=== PATIENT | male | born 1960 | race Caucasian/White ===

== ENCOUNTER 2016-09-14 15:23 | Emergency (ER) | payer OTHER ==
[~2016-09-14] VITALS: Ht 185.4 cm; Wt 113.4 kg
[~2016-09-14 15:23] MED LIST: ADULT LOW DOSE81 MG PO; ASPIRIN325 PO; ATIVAN1 MG PO; CARVEDILOL12.5 MG PO; CEFTIN 250 MG250 MG PO; CLARITIN10 MG PO; COMBIVENT INH; COREG PO; FLEXERIL PO; FLONASE 0.05%50 MCG NS; IBUPROFEN 600600 M1 PO; IMDUR 30 MG TAB30 M1 PO; LISINOPRIL10 MG PO; MUCINEX TA600 MG/TA2 PO; NORCO 5-325 TA1 EACH PO; PERCOCET 5-3251 EACH PO; PREDNISONE 20 M20 MG PO; PREDNISONE 5 MG5 M1 PO; PRILOSEC40 MG PO; TYLENOL325 MG PO; ULTRAM 50MG TAB50 MG PO; VENTOLIN HFA 1818 GM INH; VYTORIN 10-401 EACH PO; VYTORIN PO; ZESTRIL10 MG PO
[2016-09-14] MEDS ORDERED: FLEXERIL PO (15:45)
[2016-09-14] MEDS ORDERED: MEDROLDOSEPACK PO (15:45)
[2016-09-14] MEDS ORDERED: MOBIC15 MG PO (15:45)
[2016-09-22] MEDS ORDERED: ULTRAM 50MG TAB50 MG PO (15:56)
== END 2016-09-14 16:22 | disposition home or self-care (01) ==
LOC: ER 15:23
DX: S39.012A Strain of muscle, fascia and tendon of lower back, initial encounter (principal); K21.9 Gastro-esophageal reflux disease without esophagitis; I10 Essential (primary) hypertension; I48.91 Unspecified atrial fibrillation; F17.210 Nicotine dependence, cigarettes, uncomplicated; X50.0XXA Overexertion from strenuous movement or load, initial encounter; Y93.89 Activity, other specified; Y92.098 Other place in other non-institutional residence as the place of occurrence of the external cause; Y99.8 Other external cause status

== ENCOUNTER 2017-04-03 06:23 | Emergency (ER) | payer OTHER ==
[~2017-04-03] VITALS: Ht 185.4 cm; Wt 108.9 kg
[~2017-04-03 06:23] MED LIST changes: +MEDROLDOSEPACK PO; +MOBIC15 MG PO
[2017-04-03] MEDS ORDERED: BUTALB-APAP-CA1 EACH PO (06:46)
== END 2017-04-03 06:47 | disposition home or self-care (01) ==
LOC: ER 06:23
DX: R51 Headache (principal); K21.9 Gastro-esophageal reflux disease without esophagitis; I10 Essential (primary) hypertension; I25.10 Atherosclerotic heart disease of native coronary artery without angina pectoris; I25.2 Old myocardial infarction; F17.210 Nicotine dependence, cigarettes, uncomplicated; Z95.5 Presence of coronary angioplasty implant and graft

== ENCOUNTER 2017-10-10 13:23 | Emergency (ER) | payer OTHER ==
[~2017-10-10] VITALS: Ht 185.4 cm; Wt 104.3 kg
[~2017-10-10 13:23] MED LIST changes: +BUTALB-APAP-CA1 EACH PO; +CYMBALTA30 MG PO; +EXCEDRIN CAPLE1 EACH PO
[2017-10-10 13:31] VITALS: BP 141/93
[2017-10-10] MEDS ORDERED: TRAMADOL 50 MG50 MG PO ×2 (13:47)
[2017-10-11] MEDS ORDERED: TRAMADOL 50 MG50 MG PO ×2 (09:51)
[2017-10-11] MEDS ORDERED: LIPITOR10 MG PO ×2 (09:51)
== END 2017-10-10 14:00 | disposition home or self-care (01) ==
LOC: ER 13:23
DX: G89.29 Other chronic pain (principal); M54.5 Low back pain; Z87.891 Personal history of nicotine dependence; K21.9 Gastro-esophageal reflux disease without esophagitis; I10 Essential (primary) hypertension; I25.10 Atherosclerotic heart disease of native coronary artery without angina pectoris; I21.9 Acute myocardial infarction, unspecified

== ENCOUNTER 2017-10-11 09:00 | Inpatient (IN) | payer OTHER ==
[~2017-10-11] VITALS: Ht 185.4 cm; Wt 107.2 kg
--- NOTE | ~2017-10-11 | EKG ---
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 : 1960 Requested By: Pipe Maria Order Number: [id number] MD: Scooter Smith Measurements Intervals [place] Rate: 75 P: 38 RI: 155 QRS: -12 QRSD: 100 T: 22 QT: 361 QTc: 404 Interpretive Statements Sinus rhythm Left ventricular hypertrophy Inferoposterior infarct, old Compared to ECG 06/02/2017 16:30:57 No significant change was found Electronically Signed On 10-11-2017 17:31:01 ART OBJECTS REPAIRER by Scooter Smith [email or web address] <ELECTRONICALLY SIGNED> By: Scooter Smith MD, [facility] 10/11/17 1731 1008 1008 Scooter Smith MD, [facility] /EPI
--- NOTE | ~2017-10-11 | 2DMMODE ---
[facility] [address] [place] [address] 2 D/M-MODE ECHOCARDIOGRAM Name: SHAYE LICEA Room #: 422-P ADM IN M.R.#: [id number] Admission: 10/11/17 Attend Phys: Meena Hernandez Discharge: Date of : 58 Date of Service: 10/11/17 1541 Report #: [id number] THIS REPORT FOR: //name// APPROVED REPORT Study performed: 10/11/2017 14:55:51 EXAM: Comprehensive 2D, Doppler, and color-flow Echocardiogram Patient Location: Echo lab Room #: [facility] Status: routine BSA: 2.33 HR: 80 bpm BP: 130/87 mmHg Rhythm: NSR Other Information Study Quality: Fair Technically limited study due to body habitus. Echo Enhancing Agent Indication: Rule out shunt/Endocardial border delineation Agent(s) / Amount(s) Used: Agitated Saline 6 cc Optison 5 cc 2D Dimensions RVDd: 37.59 mm LVEF(%): 36.53 (>50%) IVSd: 11.70 (7-11mm) LVOT Diam: 22.77 (18-24mm) LVDd: 52.71 mm PWd: 10.92 (7-11mm) Ascending Ao: 33.82 (22-36mm) LVDs: 43.38 (25-40mm) Aortic Root: 39.18 mm Meyers's LVEF: 36.53 % Volumes Left Atrial Volume (Systole) Single Plane 4CH: 39.13 mL Single Plane 2CH: 31.12 mL LA ESV Index: 16.00 mL/m2 Aortic Valve AoV Peak Jonathan.: 1.42 m/s AO Peak Gr.: 8.12 mmHg LVOT Max P.18 mmHg LVOT Max V: 1.14 m/s ROBERT Vmax: 3.25 cm2 [facility] [place] [address] 2 D/M-MODE ECHOCARDIOGRAM Name: SHAYE LICEA Room #: 422-P [facility] IN ..#: [id number] Admission: 10/11/17 Attend Phys: Meena Hernandez Discharge: Date of : 58 Date of Service: 10/11/17 1541 Report #: [id number] Mitral Valve E/A Ratio: 0.8 MV Decel. Time: 300.89 ms MV E Max Jonathan.: 0.59 m/s MV A Jonathan.: 0.78 m/s MV PHT: 87.26 ms IVRT: 89.97 ms Pulmonary Valve PV Peak Jonathan.: 1.03 m/s PV Peak Gr.: 4.27 mmHg Pulmonary Vein P Vein S: 0.63 m/s P Vein D: 0.46 m/s P Vein S/D Ratio: 1.37 Tricuspid Valve RAP Estimate: 5.00 mmHg Left Ventricle The left ventricle is normal size. There is normal left ventricular wall thickness. Left ventricular systolic function is low normal. LVEF is 50%. Mild diastolic dysfunction is present (impaired relaxation pattern). Right Ventricle The right ventricle is normal size. The right ventricular systolic function is normal. Atria The left atrium size is normal. No shunting by contrast bubble injection. The right atrium size is normal. Aortic Valve Aortic valve is mildly calcified. The prosthetic aortic valve is not well visualized. Bioprosthetic aortic valve is present. No aortic regurgitation is present. There is no aortic valvular stenosis. Mitral Valve The mitral valve is normal in structure. Mitral regurgitation jet is eccentrically directed. Difficult to assess. Appears to be moderate in severity. Tricuspid Valve The tricuspid valve is normal in structure. There is no tricuspid [address] [address] 2 D/M-MODE ECHOCARDIOGRAM Name: SHAYE LICEA Room #: 422-P [facility] IN ..#: [id number] Admission: 10/11/17 Attend Phys: Meena Hernandez Discharge: Date of : 58 Date of Service: 10/11/17 1541 Report #: [id number] valve regurgitation noted. Unable to assess PA pressure. Pulmonic Valve Pulmonic valve is not well visualized. Great Vessels Aortic root is mildly dilated. IVC is normal in size and collapses >50% with inspiration. Pericardium There is no pericardial effusion. <Conclusion> The left ventricle is normal size. LVEF is 50%. The left atrium size is normal. The right atrium size is normal. Aortic valve is mildly calcified. The mitral valve is normal in structure. Mitral regurgitation jet is eccentrically directed. Difficult to assess. Appears to be moderate in severity. The tricuspid valve is normal in structure. There is no tricuspid valve regurgitation noted. Unable to assess PA pressure. Aortic root is mildly dilated. There is no pericardial effusion. No shunting by contrast bubble injection. <ELECTRONICALLY SIGNED> By: Hung Chowdhury MD 10/11/17 1541 1541 154 Hung Chowdhury MD /INF
--- NOTE | ~2017-10-11 | D ---
[facility] [place] [address] [address] [place] [address] DISCHARGE SUMMARY Name: SHAYE LICEA Room #: 422[facility]P [facility] IN M.R.#: [id number] Admission: 10/11/17 Attend Phys: Meena Hernandez MD Discharge: 10/12/17 Date of : 58 Report #: [id number] THIS REPORT FOR: //name// CC: Bebeto Hernandez DATE OF SERVICE: 10/12/2017 HISTORY OF PRESENT ILLNESS: The patient is a 56-year-old man who came to the hospital with left upper extremity weakness. Please refer to admission H and P for details. In brief, the patient was hospitalized at the outside hospital a couple of months ago for the similar symptoms. HOSPITALIZATION COURSE: The patient was hospitalized with suspected CVA/TIA. MRI and MRA of the brain was obtained. Studies were unremarkable. The patient has no stroke. He has moderate stenosis of the right carotid artery. Neurologist was consulted. Per neurologist's evaluation, symptoms are not suggestive of the stroke. Rather, the patient may have a cervical radiculopathy. T-spine MRI was obtained, that is unremarkable. C-spine MRI is ordered, result of which is pending at this time. Outpatient EMG, and physical therapy is recommended. The patient's overall hospital stay was uneventful. His condition is acceptable for him to go home, and follow up as an outpatient. DISCHARGE DIAGNOSES: 1. Right upper extremity and lower extremity weakness, stroke and transient ischemic attack unlikely, as detailed above. Outpatient evaluation, to determine etiology. Possible EMG and physical therapy. 2. Coronary artery disease. No chest pain, and no evidence of acute coronary syndrome during this hospital stay. Cardiac echo showed left ventricular ejection fraction of 50%. Negative bubble study. SECONDARY DIAGNOSES: Include hypertension, gastroesophageal reflux disease, chronic back pain, and reported history of chronic obstructive pulmonary disease by the patient's chart, but the patient denies. DISCHARGE MEDICATIONS: Please refer to medication reconciliation list in EMR. DISPOSITION: The patient will be discharged home later today once C-spine MRI is completed. FOLLOWUP PLAN: [facility] [address] [place] [address] DISCHARGE SUMMARY Name: LICEASHAYE Room #: 422-P [facility] IN M.R.#: [id number] Admission: 10/11/17 Attend Phys: Meena Hernandez MD Discharge: 10/12/17 Date of : 58 Report #: [id number] 1. Follow up with the neurologist as advised. 2. Follow up with the sausage mixer and primary care physician as planned. <ELECTRONICALLY SIGNED> By: Meena Hernandez MD 10/14/17 1604 1319 1352 Meena Hernandez MD /nt
--- NOTE | ~2017-10-11 | H ---
[facility] [address] HISTORY AND PHYSICAL Name: SHAYE LICEA Room #: 422-P ADM IN M.R.#: [id number] Admission: 10/11/17 Attend Phys: Meena Hernandez MD Discharge: Date of : 58 Report #: [id number] THIS REPORT FOR: //name// CC: Bebeto Hernandez DATE OF SERVICE: 10/11/2017 CHIEF COMPLAINT: Left upper extremity weakness. HISTORY OF PRESENT ILLNESS: The patient is a 56-year-old man who was hospitalized at [facility] in July 2017, for left-sided TIA. The patient denies history of strokes. He was doing well, until this morning, when he woke up with left-sided weakness. The patient reports numbness and weakness in left upper extremity, followed by tremors. Then, he also noticed left leg weakness. Symptoms are slightly better, but the patient still remains symptomatic. In the emergency room, CT scan of the brain showed no evidence of stroke. MRI was also negative for the stroke. On MRA, the patient has moderate right carotid stenosis. PAST MEDICAL HISTORY: 1. Coronary artery disease, status post stent placements. 2. Hypertension. 3. GERD. 4. Chronic back pain. 5. Reported history of COPD, but the patient denies, and he is not on any treatment. CURRENT MEDICATIONS: The patient is on Lipitor, Coreg, Cymbalta for pain, lisinopril, omeprazole, and tramadol. FAMILY HISTORY: Reviewed and not pertinent to the patient's current condition. SOCIAL HISTORY: The patient quit smoking cigarettes about a year and a half ago. He does not drink alcohol. REVIEW OF SYSTEMS: As above in HPI section, all others negative. PHYSICAL EXAMINATION: GENERAL: The patient is a middle-aged man who is in no apparent distress. He is alert and oriented x3. VITAL SIGNS: His blood pressure is 130/87, heart rate is 70, respiration is 16, and temperature is 98.7. HEENT: Pupils are equal. Eye movements are normal. Sclerae are anicteric. [facility] [address] [place] [address] HISTORY AND PHYSICAL Name: SHAYE LICEA Room #: 422-P [facility] IN M.R.#: [id number] Admission: 10/11/17 Attend Phys: Meena Hernandez MD Discharge: Date of : 58 Report #: [id number] NECK: Supple. The patient has no JVD. He has no carotid bruits. RESPIRATORY: Respiratory sounds are diminished. Lungs are clear to auscultation bilaterally. Chest moves symmetrically with breathing. CARDIOVASCULAR: The patient has regular rhythm and rate. He has no murmurs, gallops, or rubs. GASTROINTESTINAL: Abdomen is soft, nondistended and nontender. Bowel sounds are present. Hepatomegaly or splenomegaly is not palpated. MUSCULOSKELETAL: The patient has no edema, cyanosis, or clubbing. Range of motion is normal. Joint deformities are not appreciated. NEUROLOGIC: The patient is alert and oriented x3. Muscle strength on the left side is slightly weak. The patient has left upper extremity tremor. LABS: Basic metabolic profile is essentially normal except with slightly low potassium at 3.2. Liver function tests are normal. Troponin is undetectable. CBC shows mild anemia with hemoglobin of 13.4, and hematocrit of 39.1. ASSESSMENT AND PLAN: 1. Left-sided weakness as detailed above. MRI of the brain is negative for stroke. MRA shows moderate right carotid stenosis. The patient is started on aspirin. Neurologist is consulted. Input is very much appreciated. Check fasting lipid profile, obtain carotid echo, and request PT evaluation. 2. Hypokalemia, mild. Replace and recheck. 3. Hypertension. Hold lisinopril and Coreg for permissive hypertension. 4. Dyslipidemia. The patient is on Lipitor. Adjust dose as necessary based on fasting lipid profile. 5. Deep venous thrombosis prophylaxis. Use subQ Lovenox. <ELECTRONICALLY SIGNED> By: Meena Hernandez MD 10/11/17 1906 1429 1552 Meena Hernandez MD /nt
--- NOTE | ~2017-10-11 | HC ---
[facility] [place] [address] [address] [place] [address] CONSULTATION Name: SHAYE LICEA Room #: 422-P [facility] IN M.R.#: [id number] Admission: 10/11/17 Attend Phys: Meena Hernandez MD Discharge: 10/12/17 Date of : 58 Report #: [id number] THIS REPORT FOR: //name// CC: Bebeto Hernandez DATE OF SERVICE: 10/11/2017 HISTORY OF PRESENT ILLNESS: This is a 56-year-old male patient who was evaluated by me for an episode of numbness on the left side. It involves left upper extremity and to some extent, it involved the left lower extremity. It does not involve the face. It is of moderate severely. He does not have any symptom to suggest that he has any weakness there. He was admitted with similar symptoms at [facility] and they found some old stroke, but did not find any new stroke. REVIEW OF SYSTEMS: Indicate that he had some lumbar spine problem. He also has some cervical spine problem. He had epidurals. He had MRI of the lumbar spine as well as cervical spine about 1 year ago. He denies any stress or anxiety. He indicates that he does not take any medication for anxiety. He does have a history of coronary artery disease. Record indicates that he may have history of GERD, hypertension, COPD. He indicates that he takes Cymbalta, but he takes it for pain. He also takes tramadol for the pain. He is not having any active eye symptom. He does not have any new ENT symptoms, chest pain, respiratory difficulty, GI, , musculoskeletal, constitutional, dermatological, hematological, psychiatric, throat or allergic symptom associated with present symptomatology. PAST MEDICAL HISTORY: Positive for coronary artery problem. FAMILY HISTORY: Negative for any early age stroke. SOCIAL HISTORY: Used to smoke, but does not smoke. He does not drink alcohol on a regular basis. PHYSICAL EXAMINATION: NEUROLOGIC: Indicates that the patient is alert, responsive. His speech, concentration, fund of knowledge and memory is at his baseline. Cranial nerve examination 2-12 is unremarkable. He does look weak in the left upper extremity, but I do not know what his baseline is. His position sense is intact. His reflexes are symmetrical. His tone is symmetrical. He has no papilledema. There is no cerebellar sign. There is no meningeal sign. There is no thyroid mass. GENERAL: He is a reasonably well-developed individual who does not have any dysmorphic features of eyes, ears and face. His hearing and vision is adequate. EXTREMITIES: His pulses are palpable. He has no edema, cyanosis or jaundice. [address] [address] CONSULTATION Name: SHAYE LICEA Room #: 422-P [facility] IN M.R.#: [id number] Admission: 10/11/17 Attend Phys: Meena Hernandez MD Discharge: 10/12/17 Date of : 58 Report #: [id number] CARDIAC: Showed unremarkable heart sound and there is no murmur or any atrial fibrillation. RESPIRATORY: No respiratory difficulty or rhonchi was noticed. VITAL SIGNS: Blood pressure is 143/86, respirations 19, pulse is 92, temperature is 98.1. LABORATORY DATA: His white count is normal. His potassium is trace low at 3.2. He did have an MRI of the brain and MRA of the head and neck and CT scan. They were reviewed and they were basically unremarkable. IMPRESSION: There is no etiology, which has been demonstrated, which can explain the patient's symptoms. There is nothing on MRI to make it a case for a stroke or transient ischemic attack. Cervical spine is a possibility, but he has been evaluated in the past. He has not had a thoracic spine evaluation and we might do that. He indicated a Cardiology evaluation was recommended when he was in [place] and you might consider that. RECOMMENDATION: No clear etiology to explain the patient's symptoms are there. He does need an EMG, but that has to be done as an outpatient because we do not have any machine for EMG here. I will go ahead and do a thoracic spine MRI to complete the workup. We will go ahead and ask PT, OT to evaluate him. That consultation has already there. I will do some more blood workup, which I ordered in this patient. As mentioned above, they are recommended Cardiology evaluation with Dr. Anderson and you might consider him to see him, but this patient's symptoms are not typical for any etiology which I can say neurologically. Thank you very much for this referral and if you have any questions, please feel free to contact me. <ELECTRONICALLY SIGNED> By: Ti Rowell MD 10/14/17 1145 1642 0140 Ti Rowell MD /nt
[~2017-10-11 09:00] MED LIST changes: +TRAMADOL 50 MG50 MG PO
[2017-10-11 09:01] VITALS: BP 134/94
[2017-10-11 09:34] LABS: HEMATOCRIT 39.1 % (42.0-52.0); HEMOGLOBIN 13.4 gm/dL (14.0-18.0); MCH 32.4 pg (26.0-34.0); MCHC 34.2 g/dL (28.0-37.0); MCV 94.9 fL (80.0-100.0); PLATELET COUNT 213 thou/uL (150-400); RBC 4.12 mil/uL (4.50-6.00); RDW 14.5 % (10.5-14.5); WBC 5.1 thou/uL (4.0-11.0)
[2017-10-11 09:43] LABS: ANION GAP 8 mmol/L (7-16); BUN 22 mg/dL (7-18); CALCIUM 8.6 mg/dL (8.5-10.1); CHLORIDE 108 mmol/L (98-107); CO2 28 mmol/L (21-32); CREATININE 1.2 mg/dL (0.7-1.3); GLUCOSE 107 mg/dL (74-106); POTASSIUM 3.2 mmol/L (3.5-5.1); SODIUM 144 mmol/L (136-145)
[2017-10-11 09:47] LABS: PROTIME 10.1 Seconds (9.3-11.4)
[2017-10-11 09:50] LABS: ALBUMIN 3.3 g/dL (3.4-5.0); SGOT 17 U/L (15-37); SGPT 41 U/L (30-65); TOTAL BILIRUBIN 0.2 mg/dL (<0.1-1.0); TOTAL PROTEIN 6.8 g/dL (6.4-8.2); TROPONIN-I < 0.04 ng/mL (<0.06)
[2017-10-11] MEDS ORDERED: LIPITOR10 MG PO ×2 (09:51)
[2017-10-11] MEDS ORDERED: TRAMADOL 50 MG50 MG PO ×2 (09:51)
[2017-10-11 09:57] LABS: ABSOLUTE NEUTROPHILS 3.2 thou/uL (1.4-8.2)
[2017-10-11 12:45] VITALS: BP 132/87
[2017-10-11 12:50] VITALS: BP 130/87
[2017-10-11 15:10] LABS: CHOLESTEROL 156 mg/dL (<200); HDL CHOLESTEROL 30 mg/dL (>40); LDL CHOLESTEROL 89 mg/dL (<100); SERUM ASSESSMENT Clear; TC:HDL 5.2 Ratio (Not establshd); TRIGLYCERIDE 189 mg/dL (<150); VLDL 38 mg/dL (<40)
[2017-10-11 15:44] VITALS: BP 143/86
[2017-10-11 19:40] VITALS: BP 139/84
[2017-10-12 04:00] VITALS: BP 151/94
[2017-10-12 05:41] LABS: CALCIUM 8.6 mg/dL (8.5-10.1); CREATININE 0.9 mg/dL (0.7-1.3); POTASSIUM 3.8 mmol/L (3.5-5.1)
[2017-10-12 06:00] LABS: URINE BILIRUBIN NEGATIVE (Negative); URINE BLOOD NEGATIVE (Negative); URINE CLARITY CLEAR; URINE COLOR YELLOW; URINE GLUCOSE-RANDOM* NEGATIVE (Negative); URINE KETONES NEGATIVE (Negative); URINE LEUKOCYTES NEGATIVE (Negative); URINE NITRITE NEGATIVE (Negative); URINE PROTEIN (DIPSTICK) NEGATIVE (Negative); URINE SPECIFIC GRAVITY 1.025 (1.005-1.035); URINE UROBILINOGEN 0.2 E.U./dl (0.2-1.0)
[2017-10-12 06:09] LABS: AMP/METHAMP Negative (Negative); BARBITURATES Negative (Negative); BENZODIAZEPINES Negative (Negative); COCAINE Negative (Negative); METHADONE Negative (Negative); OPIATES POSITIVE (Negative); PCP Negative (Negative)
[2017-10-12 07:54] VITALS: BP 134/98
[2017-10-12 15:42] VITALS: BP 155/96
[2017-10-12] MEDS ORDERED: HYDROCODONE-AP1 EAC6 PO ×2 (15:49)
== END 2017-10-12 16:34 | disposition home or self-care (01) | DRG 948 ==
LOC: ER 09:00 → 4E 09:58 → EROBS 09:58 → 4E 13:01
PROVIDERS: Internal Medicine Endocrinology, Diabetes & Metabolism; Physician Assistant
DX: R53.1 Weakness (principal); E87.6 Hypokalemia; K21.9 Gastro-esophageal reflux disease without esophagitis; I10 Essential (primary) hypertension; I25.10 Atherosclerotic heart disease of native coronary artery without angina pectoris; G89.29 Other chronic pain; M54.9 Dorsalgia, unspecified; J44.9 Chronic obstructive pulmonary disease, unspecified; E78.5 Hyperlipidemia, unspecified; I25.2 Old myocardial infarction; Z79.899 Other long term (current) drug therapy; Z95.5 Presence of coronary angioplasty implant and graft; Z87.891 Personal history of nicotine dependence
CPT/HCPCS: 10183

== ENCOUNTER 2018-03-23 15:07 | Inpatient (IN) | payer OTHER ==
[~2018-03-23] VITALS: Ht 185.4 cm; Wt 105.3 kg
--- NOTE | ~2018-03-23 | EKG ---
[facility] [place] [address] ELECTROCARDIOGRAM REPORT Name: SHAYE LICEA BALTAZAR Room #: REG Vazquez#: [id number] Admission: 03/23/18 Attend Phys: Discharge: Date of : 58 Report #: [id number] THIS REPORT FOR: //name// [facility] ED Test Date: 2018-03-23 Test Time: 15:48:03 Pat Name: SHAYE LICEA Department: Room: Gender: M Principal Consultant: brad : 1960 Requested By: Marta Tam Order Number: [id number] MD: Scooter Smith Measurements Intervals [place] Rate: 85 P: 43 [place]: 149 QRS: -11 QRSD: 101 T: 53 QT: 358 QTc: 426 Interpretive Statements Sinus rhythm Abnormal R-wave progression, early transition Inferior infarct, old Compared to ECG 10/11/2017 10:08:56 No significant change was found Electronically Signed On 03-23-2018 17:23:19 CDT by Scooter Smith [email or web address] <ELECTRONICALLY SIGNED> By: Scooter Smith MD, [facility] 03/23/18 1723 1548 1548 Scooter Smith MD, [facility] /EPI
[~2018-03-23 15:07] MED LIST changes: +HYDROCODONE-AP1 EAC6 PO; +LIPITOR10 MG PO
[2018-03-23 15:08] VITALS: BP 153/104
[2018-03-23 15:34] LABS: ABSOLUTE NEUTROPHILS 6.8 thou/uL (1.4-8.2); BASOPHILS 1.2 % (0.0-2.0); EOSINOPHILS 0.7 % (0.0-3.0); HEMATOCRIT 42.4 % (42.0-52.0); HEMOGLOBIN 14.4 gm/dL (14.0-18.0); LYMPHOCYTES 22.3 % (24.0-44.0); MCH 31.9 pg (26.0-34.0); MCV 93.9 fL (80.0-100.0); MONOCYTES 6.3 % (1.0-8.0); PLATELET COUNT 347 thou/uL (150-400); POLYS 69.5 % (36.0-66.0); RBC 4.52 mil/uL (4.50-6.00); RDW 13.6 % (10.5-14.5); WBC 9.8 thou/uL (4.0-11.0)
[2018-03-23 15:43] LABS: CALCIUM 9.6 mg/dL (8.5-10.1); CREATININE 1.5 mg/dL (0.7-1.3); POTASSIUM 4.3 mmol/L (3.5-5.1)
[2018-03-23 16:42] VITALS: BP 151/91
[2018-03-23 17:52] VITALS: BP 157/100
[2018-03-23 18:04] VITALS: BP 122/90
[2018-03-23 18:57] VITALS: BP 148/86
[2018-03-24 03:09] LABS: GLYCOHEMOGLOBIN (HGB A1C) 6.2 % (4.8-5.6)
[2018-03-24 05:16] VITALS: BP 147/89
[2018-03-24 06:29] LABS: ABSOLUTE NEUTROPHILS 4.5 thou/uL (1.4-8.2); BASOPHILS 0.6 % (0.0-2.0); EOSINOPHILS 0.9 % (0.0-3.0); HEMATOCRIT 41.2 % (42.0-52.0); HEMOGLOBIN 14.2 gm/dL (14.0-18.0); LYMPHOCYTES 25.8 % (24.0-44.0); MCH 32.3 pg (26.0-34.0); MCHC 34.4 g/dL (28.0-37.0); MCV 94.1 fL (80.0-100.0); MONOCYTES 8.9 % (1.0-8.0); POLYS 63.8 % (36.0-66.0); RBC 4.38 mil/uL (4.50-6.00); RDW 13.8 % (10.5-14.5)
[2018-03-24 06:30] LABS: PLATELET COUNT 263 thou/uL (150-400)
[2018-03-24 06:39] LABS: ANION GAP 6 mmol/L (7-16); BUN 19 mg/dL (7-18); CALCIUM 8.8 mg/dL (8.5-10.1); CHLORIDE 105 mmol/L (98-107); CO2 27 mmol/L (21-32); CREATININE 1.1 mg/dL (0.7-1.3); GLUCOSE 103 mg/dL (74-106); SODIUM 138 mmol/L (136-145)
[2018-03-24 06:44] LABS: CHOLESTEROL 163 mg/dL (<200); HDL CHOLESTEROL 29 mg/dL (>40); LDL CHOLESTEROL 107 mg/dL (<100); MAGNESIUM 1.9 mg/dL (1.8-2.4); TC:HDL 5.6 Ratio (Not establshd); TRIGLYCERIDE 137 mg/dL (<150); VLDL 27 mg/dL (<40)
[2018-03-24 07:19] VITALS: BP 138/93
[2018-03-24 11:13] VITALS: BP 129/93
== END 2018-03-24 15:44 | disposition left against medical advice (07) | DRG 551 ==
LOC: ER 15:07 → 3W 17:58
PROVIDERS: Emergency Medicine; Nurse Practitioner
DX: M47.892 Other spondylosis, cervical region (principal); N17.0 Acute kidney failure with tubular necrosis; K21.9 Gastro-esophageal reflux disease without esophagitis; I10 Essential (primary) hypertension; I25.10 Atherosclerotic heart disease of native coronary artery without angina pectoris; M54.9 Dorsalgia, unspecified; M47.894 Other spondylosis, thoracic region; Z53.21 Procedure and treatment not carried out due to patient leaving prior to being seen by health care provider; M54.2 Cervicalgia; I65.21 Occlusion and stenosis of right carotid artery; F41.9 Anxiety disorder, unspecified; F32.9 Major depressive disorder, single episode, unspecified; G89.4 Chronic pain syndrome; Z79.82 Long term (current) use of aspirin; Z79.899 Other long term (current) drug therapy; I25.2 Old myocardial infarction; Z95.5 Presence of coronary angioplasty implant and graft; Z87.891 Personal history of nicotine dependence
CPT/HCPCS: 10879

== ENCOUNTER 2018-11-12 20:11 | Emergency (ER) | payer OTHER ==
[~2018-11-12] VITALS: Ht 185.4 cm; Wt 108.9 kg
[2018-11-12 21:38] LABS: ABSOLUTE NEUTROPHILS 7.3 thou/uL (1.4-8.2); BASOPHILS 1.2 % (0.0-2.0); EOSINOPHILS 2.3 % (0.0-3.0); HEMATOCRIT 37.8 % (42.0-52.0); LYMPHOCYTES 18.3 % (24.0-44.0); MCH 31.2 pg (26.0-34.0); MCHC 34.5 g/dL (28.0-37.0); MCV 90.4 fL (80.0-100.0); MONOCYTES 6.8 % (1.0-8.0); PLATELET COUNT 494 thou/uL (150-400); POLYS 71.4 % (36.0-66.0); RBC 4.18 mil/uL (4.50-6.00); RDW 14.1 % (10.5-14.5); WBC 10.3 thou/uL (4.0-11.0)
[2018-11-12 21:48] LABS: ANION GAP 9 mmol/L (7-16); BUN 21 mg/dL (7-18); CALCIUM 9.3 mg/dL (8.5-10.1); CHLORIDE 101 mmol/L (98-107); CO2 25 mmol/L (21-32); CREATININE 1.1 mg/dL (0.7-1.3); GLUCOSE 159 mg/dL (74-106); POTASSIUM 3.9 mmol/L (3.5-5.1); SODIUM 135 mmol/L (136-145)
[2018-11-12 21:57] LABS: TROPONIN-I <0.06 ng/mL (<0.06)
[2018-11-12] MEDS ORDERED: ATIVAN0.5 M1 PO (22:32)
[2018-11-12 22:43] VITALS: BP 127/79
--- NOTE | 2018-11-13 10:52 | EKG ---
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: : 1960 Requested By: Jessa Connors Order Number: [id number] MD: Ishaan Anderson Measurements Intervals [place] Rate: 98 P: 50 [place]: 152 QRS: -6 QRSD: 101 T: 54 QT: 337 QTc: 431 Interpretive Statements Sinus rhythm Abnormal R-wave progression, early transition Inferior infarct, old Probable anterolateral infarct, old Baseline wander in lead(s) III Compared to ECG 03/23/2018 15:48:03 No significant changes Electronically Signed On 11-13-2018 10:51:48 CDT by Ishaan Anderson [email or web address] ��������������������������������������������� <ELECTRONICALLY SIGNED> ���������������������������������������� By: Ishaan Anderson MD ��������������������������������������������� 11/13/18 1051 28 28 Ishaan Anderson MD /ISAI
== END 2018-11-12 22:43 | disposition home or self-care (01) ==
LOC: ER 20:11
PROVIDERS: Emergency Medicine
DX: F41.9 Anxiety disorder, unspecified (principal); K21.9 Gastro-esophageal reflux disease without esophagitis; I10 Essential (primary) hypertension; I25.10 Atherosclerotic heart disease of native coronary artery without angina pectoris; G89.29 Other chronic pain; M54.9 Dorsalgia, unspecified; Z95.5 Presence of coronary angioplasty implant and graft; Z86.73 Personal history of transient ischemic attack (TIA), and cerebral infarction without residual deficits; Z87.891 Personal history of nicotine dependence

== ENCOUNTER 2019-02-04 00:17 | Emergency (ER) | payer OTHER ==
[~2019-02-04] VITALS: Ht 185.4 cm; Wt 104.3 kg
[~2019-02-04 00:17] MED LIST changes: +ATIVAN0.5 M1 PO
[2019-02-04] MEDS ORDERED: PERCOCET 10-321 EACH PO (00:42)
[2019-02-04] MEDS ORDERED: MEDROLDOSEPACK PO (02:11)
[2019-02-04 02:14] VITALS: BP 133/89
== END 2019-02-04 02:14 | disposition home or self-care (01) ==
LOC: ER 00:17
DX: G89.29 Other chronic pain (principal); M54.2 Cervicalgia; M54.9 Dorsalgia, unspecified; K21.9 Gastro-esophageal reflux disease without esophagitis; I10 Essential (primary) hypertension; I25.10 Atherosclerotic heart disease of native coronary artery without angina pectoris; I25.2 Old myocardial infarction; Z95.5 Presence of coronary angioplasty implant and graft; Z86.73 Personal history of transient ischemic attack (TIA), and cerebral infarction without residual deficits; Z87.891 Personal history of nicotine dependence

== ENCOUNTER 2019-02-09 18:34 | Inpatient (IN) | payer OTHER ==
[~2019-02-09] VITALS: Ht 185.4 cm; Wt 100.7 kg
[~2019-02-09 18:34] MED LIST changes: -LIPITOR10 MG PO; +LIPITOR40 MG PO; +PERCOCET 10-321 EACH PO; +PRILOSEC OTC20 MG PO; -PRILOSEC40 MG PO
[2019-02-09 18:35] VITALS: BP 133/94
[2019-02-09 19:55] LABS: ABSOLUTE NEUTROPHILS 5.2 thou/uL (1.4-8.2); BASOPHILS 1.2 % (0.0-2.0); EOSINOPHILS 0.4 % (0.0-3.0); HEMATOCRIT 42.8 % (42.0-52.0); HEMOGLOBIN 14.7 gm/dL (14.0-18.0); LYMPHOCYTES 28.5 % (24.0-44.0); MCH 32.5 pg (26.0-34.0); MCHC 34.4 g/dL (28.0-37.0); MCV 94.4 fL (80.0-100.0); MONOCYTES 8.3 % (1.0-8.0); PLATELET COUNT 455 thou/uL (150-400); POLYS 61.6 % (36.0-66.0); RBC 4.53 mil/uL (4.50-6.00); RDW 14.4 % (10.5-14.5); WBC 8.4 thou/uL (4.0-11.0)
[2019-02-09 19:57] LABS: ANION GAP 12 mmol/L (7-16); BUN 26 mg/dL (7-18); CALCIUM 9.3 mg/dL (8.5-10.1); CHLORIDE 102 mmol/L (98-107); CO2 24 mmol/L (21-32); CREATININE 1.3 mg/dL (0.7-1.3); GLUCOSE 111 mg/dL (74-106); POTASSIUM 4.3 mmol/L (3.5-5.1); SODIUM 138 mmol/L (136-145)
[2019-02-09 20:03] LABS: PROTIME 10.5 Seconds (9.3-11.4)
[2019-02-09 20:07] LABS: ALBUMIN 3.8 g/dL (3.4-5.0); MAGNESIUM 1.8 mg/dL (1.8-2.4); SGOT 16 U/L (15-37); SGPT 25 U/L (30-65); TOTAL BILIRUBIN 0.4 mg/dL (<0.1-1.0); TOTAL PROTEIN 8.3 g/dL (6.4-8.2); TROPONIN-I <0.06 ng/mL (<0.06)
[2019-02-09 21:06] VITALS: BP 129/91
--- NOTE | 2019-02-10 01:09 | NUR ---
PT ARRIVED ON UNIT FROM ED. PT ALERT AND ORIENTED. ASSESSMENT COMPLETE. VSS. IV DRESSING C/D/I. ORDERS IMPLEMENTED. ADMISSION EDUCATION PROVIDED. CALL LIGHT AND PERSONAL BELONINS WITHIN RECH, WILL CONTINUE POC UNTIL EOS.
[2019-02-10 03:34] VITALS: BP 139/80
[2019-02-10 05:17] LABS: URINE BILIRUBIN NEGATIVE (Negative); URINE BLOOD NEGATIVE (Negative); URINE CLARITY CLEAR; URINE COLOR YELLOW; URINE GLUCOSE-RANDOM* NEGATIVE (Negative); URINE KETONES NEGATIVE (Negative); URINE LEUKOCYTES-REFLEX NEGATIVE (Negative); URINE NITRITE-REFLEX NEGATIVE (Negative); URINE PROTEIN (DIPSTICK) NEGATIVE (Negative); URINE SPECIFIC GRAVITY 1.015 (1.005-1.035); URINE UROBILINOGEN 0.2 E.U./dl (0.2-1.0)
[2019-02-10 05:35] LABS: CALCIUM 9.2 mg/dL (8.5-10.1); CREATININE 1.1 mg/dL (0.7-1.3); POTASSIUM 4.2 mmol/L (3.5-5.1)
[2019-02-10 05:35] LABS: AMP/METHAMP Negative (Negative); BARBITURATES Negative (Negative); BENZODIAZEPINES Negative (Negative); COCAINE Negative (Negative); METHADONE Negative (Negative); OPIATES POSITIVE (Negative); PCP Negative (Negative)
[2019-02-10 08:00] VITALS: BP 141/97
--- NOTE | 2019-02-10 08:36 | EKG ---
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 : 1960 Requested By: Todd Travis Order Number: [id number] MD: Socoter Smith Measurements Intervals [place] Rate: 101 P: 32 [place]: 140 QRS: -12 QRSD: 97 T: 60 QT: 334 QTc: 433 Interpretive Statements Sinus tachycardia Abnormal R-wave progression, early transition Inferoposterior infarct, old Compared to ECG 11/12/2018 20:29:39 No significant change was found Electronically Signed On 02-10-2019 8:36:07 CDT by Scooter Smith [email or web address] ��������������������������������������������� <ELECTRONICALLY SIGNED> ���������������������������������������� By: Scooter Smith MD, [facility] ��������������������������������������������� 02/10/19 0836 44 44 Scooter Smith MD, [facility] /EPI
[2019-02-10 09:15] LABS: FOLIC ACID 18.6 ng/mL (8.6-58.9)
[2019-02-10] MEDS ORDERED: PERCOCET 7.5-31 EACH PO (09:31)
[2019-02-10] MEDS ORDERED: FLEXERIL PO (09:32)
[2019-02-10] MEDS ORDERED: PHENERGAN 25 MG25 M1 PO (09:32)
[2019-02-10] MEDS ORDERED: ZESTORETIC 20-1 EAC3 PO (09:33)
[2019-02-10] MEDS ORDERED: OTHER PHARMACY (09:34)
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
--- NOTE | 2019-02-10 19:26 | NUR ---
ASSUMED CARE OF PT AT 0700. ASSESSMENT CHARTED. A&O,X4. C/O NECK AND SPINE PAIN RADIATING TO LEFT ARM, PAIN MEDS GIVEN ORDERED. TREMORS NOTED ALL OVER. MRI COMPLETED TODAY. ELEVATED BP, HOME BP MEDS GIVEN ORDERED. FAMILY AT BEDSIDE THIS EVENING. NO IMPROVEMENT IN TREMORS NOTED.
[2019-02-10 20:59] VITALS: BP 142/82
[2019-02-10 21:30] VITALS: BP 148/67
--- NOTE | 2019-02-11 03:05 | NUR ---
ASSUMED CARE AT 1900, ASSESSMENT COMPLETED. PT C/O SEVERE NECK PAIN RADIATING TO SHOULDER AND DOWN LEFT ARM WITH TINGLING/NUMBNESS PRESENT WELL. PT UPSET THAT A PHYSICIAN HASN'T SEEM HIM TO DISCUSS THE MRI FINDINGS; KEPT STATING "MY PAIN HAS BEEN UNCONTROLLED SINCE THE MRI, AND IF THEY AREN'T GOING TO DO ANYTHING ABOUT IT, I'M JUST GOING TO GO SOMEWHERE THAT WILL ADDRESS WHAT'S WRONG WITH MY CERVICAL SPINE." OBTAINED ORDER FOR ONE TIME DOSE DILAUDID AND EXPLAINED NEUROLOGIST WOULD DISCUSS FINDINGS IN THE AM; WITH IV PAIN MEDS, PAIN DROPPED FROM A 10 TO A 3. MILD NAUSEA AFTER IV MEDS, GAVE DOSE ZOFRAN AND CRACKERS/SPRITE. PT WAS ABLE TO SLEEP FOR SEVERAL HOURS WITHOUT COMPLAINT. GAVE ANOTHER DOSE PO PAIN MEDS WITH SCHEDULED BACLOFEN TO STAY ON TOP OF PAIN LEVEL. NO OTHER CONCERNS, WILL CONTINUE TO MONITOR.
[2019-02-11 05:33] VITALS: BP 138/78
--- NOTE | 2019-02-11 13:07 | NUR ---
PT A&OX4, IV INTACT IN R AC, AMBULATES WITH STANDBY ASSIST. C/O PAIN TO LEFT SIDE NECK RADIATING DOWN TO ARM. MODERATE TREMORS NOTED IN HANDS, CONSULTED PT THIS AM AND ORDERED CLONAZEPAM PO. WILL CONT POC.
[2019-02-11 16:44] VITALS: BP 138/78
--- NOTE | 2019-02-11 17:09 | NUR ---
DC ORDERS RECEIVED. DC INSTRUCTIOS AND F/U APPOINTMENT REVIEWED WITH PT. IV REMOVED FROM R AC, OPERATIONS WELDER WHEELED PT TO FRONT ENTRANCE.
[2019-02-13 10:10] LABS: ANA INTERPRETATION Negative (Negative)
== END 2019-02-11 17:08 | disposition home or self-care (01) | DRG 552 ==
LOC: ER 18:34 → EROBS 20:51 → 4E 20:51
PROVIDERS: Emergency Medicine; Nurse Practitioner Family; Psychiatry & Neurology Neurology; ADMIT Hospitalist
DX: M50.00 Cervical disc disorder with myelopathy, unspecified cervical region (principal); Q87.40 Marfan syndrome, unspecified; R25.1 Tremor, unspecified; M19.90 Unspecified osteoarthritis, unspecified site; G89.29 Other chronic pain; M54.9 Dorsalgia, unspecified; I25.10 Atherosclerotic heart disease of native coronary artery without angina pectoris; I10 Essential (primary) hypertension; K21.9 Gastro-esophageal reflux disease without esophagitis; F41.9 Anxiety disorder, unspecified; Z86.73 Personal history of transient ischemic attack (TIA), and cerebral infarction without residual deficits; Z95.5 Presence of coronary angioplasty implant and graft; Z87.891 Personal history of nicotine dependence; I25.2 Old myocardial infarction; Z79.899 Other long term (current) drug therapy
CPT/HCPCS: 10084

== ENCOUNTER 2019-05-16 23:01 | Emergency (ER) | payer OTHER ==
[~2019-05-16] VITALS: Ht 185.4 cm; Wt 104.3 kg
[~2019-05-16 23:01] MED LIST changes: +OTHER PHARMACY; +PERCOCET 7.5-31 EACH PO; +PHENERGAN 25 MG25 M1 PO; +ZESTORETIC 20-1 EAC3 PO
[2019-05-16] MEDS ORDERED: OXYCODONE HCL10 MG PO (23:23)
[2019-05-17 01:11] VITALS: BP 121/73
== END 2019-05-17 01:11 | disposition home or self-care (01) ==
LOC: ER 23:01
DX: T40.2X1A Poisoning by other opioids, accidental (unintentional), initial encounter (principal); M54.9 Dorsalgia, unspecified; G89.29 Other chronic pain; K21.9 Gastro-esophageal reflux disease without esophagitis; I10 Essential (primary) hypertension; I25.10 Atherosclerotic heart disease of native coronary artery without angina pectoris; I21.9 Acute myocardial infarction, unspecified; F41.9 Anxiety disorder, unspecified; Z95.5 Presence of coronary angioplasty implant and graft; Z86.73 Personal history of transient ischemic attack (TIA), and cerebral infarction without residual deficits; Z87.891 Personal history of nicotine dependence; Y92.89 Other specified places as the place of occurrence of the external cause

== ENCOUNTER 2019-06-02 23:32 | Emergency (ER) | payer OTHER ==
[~2019-06-02] VITALS: Ht 185.4 cm; Wt 104.3 kg
[~2019-06-02 23:32] MED LIST changes: +OXYCODONE HCL10 MG PO
[2019-06-02] MEDS ORDERED: CYCLOBENZAPRINE10 MG PO (23:43)
[2019-06-02] MEDS ORDERED: TRAMADOL 50 MG50 MG PO (23:44)
[2019-06-02 23:46] VITALS: BP 149/87
[2019-06-02] MEDS ORDERED: ULTRAM 50MG TAB50 MG PO (23:50)
== END 2019-06-02 23:53 ==
LOC: ER 23:32
DX: M54.2 Cervicalgia (principal); M54.9 Dorsalgia, unspecified; G89.29 Other chronic pain; I10 Essential (primary) hypertension; I25.10 Atherosclerotic heart disease of native coronary artery without angina pectoris; K21.9 Gastro-esophageal reflux disease without esophagitis; F41.9 Anxiety disorder, unspecified; Z95.5 Presence of coronary angioplasty implant and graft; Z86.73 Personal history of transient ischemic attack (TIA), and cerebral infarction without residual deficits; Z87.891 Personal history of nicotine dependence

== ENCOUNTER 2020-03-18 18:12 | Emergency (ER) | payer OTHER ==
[~2020-03-18] VITALS: Ht 185.4 cm; Wt 106.6 kg
[~2020-03-18 18:12] MED LIST changes: +CYCLOBENZAPRINE10 MG PO
[2020-03-18] MEDS ORDERED: LISINOPRIL PO (19:19)
[2020-03-18] MEDS ORDERED: OMEPRAZOLE40 MG PO (19:20)
[2020-03-18] MEDS ORDERED: ASPIR 8181 M1 PO (19:20)
[2020-03-18 21:26] LABS: ABSOLUTE NEUTROPHILS 3.1 thou/uL (1.4-8.2); BASOPHILS 1.1 % (0.0-2.0); EOSINOPHILS 1.9 % (0.0-3.0); HEMATOCRIT 34.9 % (42.0-52.0); HEMOGLOBIN 11.7 gm/dL (14.0-18.0); LYMPHOCYTES 32.2 % (24.0-44.0); MCHC 33.6 g/dL (28.0-37.0); MCV 89.3 fL (80.0-100.0); PLATELET COUNT 243 thou/uL (150-400); POLYS 53.8 % (36.0-66.0); RDW 19.7 % (10.5-14.5); WBC 5.7 thou/uL (4.0-11.0)
[2020-03-18 21:34] LABS: CALCIUM 8.7 mg/dL (8.5-10.1); CREATININE 0.9 mg/dL (0.7-1.3); POTASSIUM 3.7 mmol/L (3.5-5.1)
[2020-03-18 22:47] VITALS: BP 134/80
== END 2020-03-18 22:48 | disposition home or self-care (01) ==
LOC: ER 18:12
PROVIDERS: Emergency Medicine
DX: R22.42 Localized swelling, mass and lump, left lower limb (principal); I25.10 Atherosclerotic heart disease of native coronary artery without angina pectoris; I10 Essential (primary) hypertension; K21.9 Gastro-esophageal reflux disease without esophagitis; Z79.899 Other long term (current) drug therapy; Z79.82 Long term (current) use of aspirin; Z87.891 Personal history of nicotine dependence

== ENCOUNTER 2020-06-21 18:48 | Inpatient (IN) | payer OTHER ==
[~2020-06-21] VITALS: Ht 185.4 cm; Wt 104.1 kg
[~2020-06-21 18:48] MED LIST changes: +ASPIR 8181 M1 PO; +LISINOPRIL PO; +OMEPRAZOLE40 MG PO
[2020-06-21 18:59] VITALS: BP 197/112
[2020-06-21 19:46] LABS: ABSOLUTE NEUTROPHILS 7.6 thou/uL (1.4-8.2); BASOPHILS 0.4 % (0.0-2.0); EOSINOPHILS 0.1 % (0.0-3.0); HEMATOCRIT 37.8 % (42.0-52.0); HEMOGLOBIN 12.6 gm/dL (14.0-18.0); LYMPHOCYTES 12.9 % (24.0-44.0); MCH 30.2 pg (26.0-34.0); MCHC 33.3 g/dL (28.0-37.0); MCV 90.7 fL (80.0-100.0); MONOCYTES 6.6 % (1.0-8.0); PLATELET COUNT 276 thou/uL (150-400); RBC 4.16 mil/uL (4.50-6.00); RDW 13.5 % (10.5-14.5); WBC 9.5 thou/uL (4.0-11.0)
[2020-06-21 19:51] LABS: ANION GAP 14 mmol/L (7-16); BUN 11 mg/dL (7-18); CALCIUM 9.9 mg/dL (8.5-10.1); CHLORIDE 108 mmol/L (98-107); CO2 23 mmol/L (21-32); GLUCOSE 176 mg/dL (74-106); POTASSIUM 3.9 mmol/L (3.5-5.1); SODIUM 145 mmol/L (136-145)
[2020-06-21 20:01] LABS: MAGNESIUM 1.7 mg/dL (1.8-2.4); TROPONIN-I <0.06 ng/mL (<0.06)
[2020-06-21 21:04] LABS: ALBUMIN 4.3 g/dL (3.4-5.0); DIRECT BILIRUBIN < 0.1 mg/dL (<0.1-0.2); SGOT 24 U/L (15-37); SGPT 19 U/L (30-65); TOTAL BILIRUBIN 0.4 mg/dL (0.2-1.0); TOTAL PROTEIN 8.3 g/dL (6.4-8.2)
[2020-06-21 22:24] LABS: URINE BILIRUBIN NEGATIVE (Negative); URINE BLOOD NEGATIVE (Negative); URINE CLARITY CLEAR; URINE COLOR YELLOW; URINE GLUCOSE-RANDOM* NEGATIVE (Negative); URINE KETONES NEGATIVE (Negative); URINE LEUKOCYTES-REFLEX NEGATIVE (Negative); URINE NITRITE-REFLEX NEGATIVE (Negative); URINE PROTEIN (DIPSTICK) NEGATIVE (Negative); URINE SPECIFIC GRAVITY 1.015 (1.005-1.035); URINE UROBILINOGEN 0.2 E.U./dl (0.2-1.0)
[2020-06-21 22:33] LABS: AMP/METHAMP Negative (Negative); BARBITURATES Negative (Negative); BENZODIAZEPINES Negative (Negative); COCAINE Negative (Negative); METHADONE Negative (Negative); OPIATES Negative (Negative); PCP Negative (Negative)
[2020-06-22] VITALS (30 sets, daily range): BP systolic 121–187; BP diastolic 54–101
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
[2020-06-22 04:59] LABS: CHOLESTEROL 122 mg/dL (<200); HDL CHOLESTEROL 28 mg/dL (>40); LDL CHOLESTEROL 56 mg/dL (<100); TC:HDL 4.4 Ratio (Not establshd); TRIGLYCERIDE 192 mg/dL (<150); VLDL 38 mg/dL (<40)
[2020-06-22 05:00] LABS: SERUM ASSESSMENT Clear
--- NOTE | 2020-06-22 10:34 | NUR ---
PATIENT DROWSY, RESTLESS AT TIMES BUT REDIRECTABLE. ORIENTED X4 AND HAS DENIED PAIN. TOLERATED DIET WELL W/O NAUSEA. DR. YATES IN TO SEE PATIENT THIS MORNING. PATIENT SWABBED FOR COVID 19. UPDATED OVER THE PHONE. WILL CONTINUE WITH POC.
--- NOTE | 2020-06-22 11:53 | NUR ---
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 PATIENT MORE RESTLESS AND FIDGITY AND STATES THIS IS HIS NORMAL, HE USUALLY DOESN'T STAY STILL FOR LONG. HE ALSO STATES THAT HIS PAIN MED PUMP IS MANAGED AT [facility] AND IS DUE TO BE CHECKED ON JUN 28. CONTINUES TO BE ORIENTED X4 STATING HE'S JUST MORE TIRED THAN NORMAL.
[2020-06-23] VITALS (18 sets, daily range): BP systolic 145–194; BP diastolic 60–115
[2020-06-23 00:31] LABS: GLYCOHEMOGLOBIN (HGB A1C) 5.5 % (4.8-5.6)
[2020-06-23 04:35] LABS: HEMATOCRIT 33.2 % (42.0-52.0); HEMOGLOBIN 11.2 gm/dL (14.0-18.0); MCH 30.6 pg (26.0-34.0); MCHC 33.8 g/dL (28.0-37.0); MCV 90.7 fL (80.0-100.0); RBC 3.66 mil/uL (4.50-6.00); WBC 8.7 thou/uL (4.0-11.0)
[2020-06-23 04:46] LABS: CALCIUM 8.8 mg/dL (8.5-10.1); MAGNESIUM 1.8 mg/dL (1.8-2.4); POTASSIUM 3.6 mmol/L (3.5-5.1)
--- NOTE | 2020-06-24 04:18 | NUR ---
VSS. SARMIENTO INTACT. TELE MONITORING. NO S/S ACUTE DISTRESS NOTED OR REPORTED AT THIS TIME. WILL CONT TO MONITOR FOR ANY CHANGES IN CONDITION.
[2020-06-24 06:11] LABS: ABSOLUTE NEUTROPHILS 7.5 thou/uL (1.4-8.2); BASOPHILS 0.6 % (0.0-2.0); HEMATOCRIT 37.8 % (42.0-52.0); HEMOGLOBIN 12.6 gm/dL (14.0-18.0); LYMPHOCYTES 15.8 % (24.0-44.0); MCH 29.9 pg (26.0-34.0); MCHC 33.4 g/dL (28.0-37.0); MCV 89.4 fL (80.0-100.0); MONOCYTES 11.5 % (1.0-8.0); PLATELET COUNT 301 thou/uL (150-400); POLYS 72.1 % (36.0-66.0); RBC 4.23 mil/uL (4.50-6.00); RDW 13.8 % (10.5-14.5); WBC 10.4 thou/uL (4.0-11.0)
[2020-06-24 06:26] LABS: ALBUMIN 3.9 g/dL (3.4-5.0); CALCIUM 8.9 mg/dL (8.5-10.1); CREATININE 0.9 mg/dL (0.7-1.3); MAGNESIUM 1.9 mg/dL (1.8-2.4); POTASSIUM 3.2 mmol/L (3.5-5.1); TOTAL BILIRUBIN 0.3 mg/dL (0.2-1.0)
--- NOTE | 2020-06-24 07:41 | EKG ---
[facility] [place] [address] ELECTROCARDIOGRAM REPORT Name: SHAYE LICEA Room #: 450-P ADM IN M.R.#: [id number] Admission: 06/22/20 Attend Phys: Kesha Estrada MD Discharge: Date of : 58 Report #: [id number] THIS REPORT FOR: cc: FAM - No family physician/PCP FAM - No family physician/PCP Scooter Smith MD [facility] THIS REPORT FOR: //name// [facility] ED Test Date: 2020-06-22 Test Time: 01:34:36 Pat Name: SHAYE LICEA Department: Room: [facility] Gender: M General Surgeon: : 1960 Requested By: Todd Travis Order Number: [id number] MD: Scooter Smith Measurements Intervals Ralph Rate: 105 P: 62 MA: 165 QRS: 33 QRSD: 102 T: -24 QT: 349 QTc: 462 Interpretive Statements Sinus tachycardia Inferoposterior infarct, age indeterminate Compared to ECG 02/09/2019 19:45:22 No significant changes Electronically Signed On 06-24-2020 7:41:23 MANAGER DELI by Scooter Smith [email or web address] <ELECTRONICALLY SIGNED> By: Scooter Smith MD, FACC 06/24/20 0741 0134 0134 Scooter Smiht MD, [facility] /EPI
--- NOTE | 2020-06-24 07:41 | EKG ---
[facility] [place] [address] ELECTROCARDIOGRAM REPORT Name: SHAYE LICEA EDLAWRENCE Room #: 450-P ADM IN M.R.#: [id number] Admission: 06/22/20 Attend Phys: Kesha Estrada MD Discharge: Date of : 58 Report #: [id number] THIS REPORT FOR: cc: EMMA Lua family physician/PCP EMMA - Chanell family physician/PCP Scooter Smith MD [facility] THIS REPORT FOR: //name// [facility] ED Test Date: 2020-06-22 Test Time: 01:04:22 Pat Name: SHAYE LICEA Department: Room: [facility] Gender: M Forging Press Setter Up: : 1960 Requested By: Todd Travis Order Number: [id number] MD: Scooter Smith Measurements Intervals Parker Rate: 111 P: 56 VA: 163 QRS: 39 QRSD: 103 T: 18 QT: 330 QTc: 449 Interpretive Statements Sinus tachycardia Abnormal R-wave progression, early transition Probable inferior infarct, old Compared to ECG 02/09/2019 19:45:22 No significant change was found Electronically Signed On 06-24-2020 7:41:14 COOLER SERVICER by Scooter Smith [email or web address] <ELECTRONICALLY SIGNED> By: Scooter Smith MD, [facility] 06/24/20 0741 3 3 Scooter Smith MD, [facility] /EPI
[2020-06-24 08:00] VITALS: BP 155/102
[2020-06-24 10:07] LABS: INR 1.1; PROTIME 11.5 Seconds (9.3-11.4)
--- NOTE | 2020-06-24 11:18 | NUR ---
Assumed pt care at 7am.Assessment completed.vss.but elevaqted bp noted.Meds given as ordered and well tolerated.Pt Kept npo for lumber puncture but reported took few bites of meals served for breakfast.Received call from radiology dept,pt updates given and coag study done.At 1115,pt left per cart for LP.Will continue to monitor.
[2020-06-24 12:37] LABS: CSF GLUCOSE 77 mg/dL (40-70); CSF PROTEIN 51 mg/dL (15-45)
[2020-06-24 12:38] VITALS: BP 141/84
[2020-06-24 13:06] LABS: CSF CLARITY CLEAR; CSF COLOR COLORLESS; VOLUME 7.5 ml
[2020-06-24 13:14] LABS: CSF RBC 3 /mm3; CSF WBC 0 /mm3 (0-10)
--- NOTE | 2020-06-24 16:05 | NUR ---
CM ATTEMPTED PC TO PT'S ROOM NUMEROUS TIMES THIS DAY WITH NO RESPONSE. PT WAS HAVING AN LP TODAY. IF APPROPRIATE PT AND OT TO SEE PT TOMORROW. CM TO FOLLOW INDICATED WITH DC PLANNING.
[2020-06-24 22:02] VITALS: BP 137/75
[2020-06-24 22:06] LABS: HIV ANTIBODY Non Reactive (Non Reactive)
[2020-06-25 04:38] VITALS: BP 143/80
--- NOTE | 2020-06-25 05:46 | NUR ---
Assumed pt care at 1900. A/OX4,VSS. Denied pain on assessment,just feeling tired and wanted to rest. Up with AX1. NSR on telemetry. Bandaid in place mid back s/p lumbar puncture. Miller patent to DD with yellow urine. Fall precautions in place, resting quietly w/o distress will continue to monitor pt.
[2020-06-25 08:15] VITALS: BP 112/73
--- NOTE | 2020-06-25 09:49 | NUR ---
pt is up ad malina to chair walks to bathroom independently w/ no assistance o x 4 mood is pleasant and calm pt declines urinary retention and doesn't believe he has ever retained urine, though he was told this repeatedly after bladder scan. He is compliant with webb currenlty, but is actively requesting to have it d/c'd. Follow up w/ Doctor.
--- NOTE | 2020-06-25 11:45 | NUR ---
I have reviewed the student documentation.
--- NOTE | 2020-06-25 12:03 | NUR ---
Per Dr. Henriquez verbal order to this RN and assistant professor of nursing at bedside ok to leave IV out at this time. Physician stated he would try to transition pt to PO medicaitons. Physician stated that he would put in a specific order if pt needs an IV to be reinserted. Primary RN notified.
[2020-06-25] MEDS ORDERED: HYDROCHLOROTHIA25 M1 PO (13:30)
[2020-06-25] MEDS ORDERED: ACETAMINOPHEN325 M1 PO (13:30)
[2020-06-25] MEDS ORDERED: BENAZEPRIL HCL20 MG PO (13:30)
[2020-06-25] MEDS ORDERED: CARVEDILOL25 MG PO (13:30)
[2020-06-25] MEDS ORDERED: CEFUROXIME500 MG PO (13:30)
[2020-06-25 13:55] VITALS: BP 112/73
--- NOTE | 2020-06-25 13:56 | NUR ---
ORDERS RECEIVED FOR PT EVAL AND TREAT. Pt RESTING IN BED WITH AT BEDSIDE. Pt DECLINING PT NEEDS AT THIS TIME. STATED HE HAS BEEN ABLE TO GET UP TO THE BATHROOM WITHOUT DIFFICULTY FOR BOWEL MOVEMENTS; CURRENTLY HAS CATHETER IN PLACE. RN NOTES REPORTING Pt IS UP AD KENNETH. Pt LIVES WITH IN HOME WITH 6+ STEPS TO ENTER WITH HANDRAIL WHICH Pt AND REPORT HE USUALLY HAS NO DIFFICULTY NAVIGATING. DOES NOT USE GAIT AIDS. JERKY MOVEMENTS HE WAS HAVING IN HIS LEGS HAVE RESOLVED. AOX4. Pt READY TO GO HOME AND PER CASE MGMT DOES NOT WANT SERVICES. ACUTE PT TO SIGN OFF Pt DECLINING EVALUATION.
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
--- NOTE | 2020-06-25 15:20 | NUR ---
Assumed pt care this am, VS stable. Pt is able to ambulate with a steady gait. Diet and medications are tolerated well. Received with A FC patent and draining yellow urine. at the bedside, refused PT eval and home health services, informed MD. DC instructions and given to the qand pt, prescriptions sent to the pharmacy. IV and FC removed. Pt is now dc and left with the .
[2020-06-25 21:05] LABS: SYPHILIS AB Non Reactive (Non Reactive)
[2020-06-26 15:07] LABS: HSV 1 DNA Negative (Negative); HSV 2 DNA Negative (Negative)
[2020-06-26 16:06] LABS: CSF VDRL Non Reactive (Non Rea:<1:1)
--- NOTE | 2020-06-30 12:43 | HC ---
[facility] [place] [address] CONSULTATION Name: SHAYE LICEA Room #: [address] [place] [address] IN M.R.#: [id number] Admission: 06/22/20 Attend Phys: Kesha Estrada MD Discharge: 06/25/20 Date of : 58 Report #: [id number] THIS REPORT FOR: cc: EMMA - No family physician/PCP FAM - No family physician/PCP Ti Sheehan MD ~ DATE OF SERVICE: 06/22/2020 HISTORY OF PRESENT ILLNESS: This is a 59-year-old male patient who was evaluated by me for an episode of confusion. I reviewed the records in the computer and looks like this patient had a pretty eventful event and then he was admitted. He was restless. He was impulsive, but this morning, he is back to his baseline. He does not know what happened, but he says he has never had this episode before. He was sleeping and was drowsy. He did not start any new medication. He did not have any undue stress, which can cause him problems. He was started on antibiotics and ID is consulted and they are going to see this patient. He basically was very restless. He believes he is pretty much back to his baseline. REVIEW OF SYSTEMS: Indicate that he did have cardiac problem, breathing issues, spine problem and the pain pump. Review of system is also positive for reflux, hypertension, coronary artery disease, angioplasty, jaw surgery, nasal congestion, degenerative disease, anxiety. PAST MEDICAL HISTORY: As summarized above. FAMILY HISTORY: Unremarkable. SOCIAL HISTORY: He does not smoke or drink any alcohol. PHYSICAL EXAMINATION: Indicates he is alert, responsive, oriented, able to follow simple and complex command. He has no meningeal sign. I could not look at the fundus. He is eating by himself. His position sense is intact on both sides. Blood pressure is 169/64. His temperature was there at 101 degrees. His pulse is 83. LABORATORY DATA: He did have a CT scan of the head in the Emergency Room, which was unremarkable. IMPRESSION AND PLAN: The first of couple of things need to be addressed first. First thing is whether he had any infection and then he responded to that infection with antibiotics, whether there is a DAY CARE ATTENDANT infection or systemic infection needs to be excluded. Second thing is he does have a pain pump and the thing that need an evaluation to see if the pain pump is functioning [facility] [address] [place] [address] CONSULTATION Name: SHAYE LICEA Room #: 450-P [facility] IN M.R.#: [id number] Admission: 06/22/20 Attend Phys: Kesha Estrada MD Discharge: 06/25/20 Date of : 58 Report #: [id number]. I do not know where the pain pump is compatible with MRI or not, so I do not think we can do much workup, but I will try to find out, but we will await ID evaluation because he did have some fever with it and his pain pump needs to be checked, but I do not know how to check it because no pain management comes here. Thank you very much for this referral and if you have any questions, please feel free to contact me. <ELECTRONICALLY SIGNED> By: Ti Sheehan MD 06/30/20 1243 0927 1142 Ti Sheehan MD /nt
--- NOTE | 2020-06-30 12:44 | EEG ---
[facility] [place] [address] ELECTROENCEPHALOGRAM Name: SHAYE LICEA Room #: 450-[facility] IN M.R.#: [id number] Admission: 06/22/20 Attend Phys: Kesha Estrada MD Discharge: 06/25/20 Date of : 58 Report #: [id number] THIS REPORT FOR: //name// CC: Cris Culver [facility] physician/PCP DATE OF SERVICE: 06/23/2020 This patient is being evaluated for altered mental status. EEG was done by placing the electrode by standard 10-20 system of electrode placement. Both referential and sequential montages were used for recording. Background activity in this patient's EEG is about 9 Hz and 30 microvolt. Photic stimulation is unremarkable. The patient became drowsy and that is associated with bilateral slowing and vertex sharp waves. Throughout the record, no active epileptiform activity was noticed. IMPRESSION: This patient's EEG is intermixed with slight theta range slowing on both sides. That is a nonspecific finding, which can occur with drowsiness, effect of psychotropic medication, dementia, encephalopathy, etc. Finding is pretty mild. No active epileptiform activity was noticed. <ELECTRONICALLY SIGNED> By: Ti Sheehan MD 06/30/20 1244 1316 1323 Ti Sheehan MD /nt
[2020-07-01 13:26] LABS: HSV PCR SOURCE CSF
[2020-07-01 23:06] LABS: B.burgdorf.IgG Negative (()); B.burgdorf.IgM Negative (())
[2020-07-03 16:06] LABS: LYME IGG CSF 0.08 Index (0.00-0.09); LYME IGM CSF < 0.06 Index (0.00-0.06)
== END 2020-06-25 14:15 | disposition home or self-care (01) | DRG 871 ==
LOC: ER 18:48 → EROBS 06-22 01:44 → 4W 06-22 01:44 → ICU 06-22 01:44 → 4W 06-23 19:15
PROVIDERS: Emergency Medicine; Nurse Practitioner Family; Radiology Vascular & Interventional Radiology; Specialist; ADMIT Internal Medicine; ATTEND Internal Medicine
DX: A41.9 Sepsis, unspecified organism (principal); G93.41 Metabolic encephalopathy; Q87.40 Marfan syndrome, unspecified; I34.0 Nonrheumatic mitral (valve) insufficiency; G89.4 Chronic pain syndrome; I25.10 Atherosclerotic heart disease of native coronary artery without angina pectoris; M54.9 Dorsalgia, unspecified; F41.9 Anxiety disorder, unspecified; K21.9 Gastro-esophageal reflux disease without esophagitis; M48.00 Spinal stenosis, site unspecified; M19.90 Unspecified osteoarthritis, unspecified site; I10 Essential (primary) hypertension; R73.9 Hyperglycemia, unspecified; Z20.828 Contact with and (suspected) exposure to other viral communicable diseases; Z87.891 Personal history of nicotine dependence; I25.2 Old myocardial infarction; Z95.5 Presence of coronary angioplasty implant and graft; Z86.73 Personal history of transient ischemic attack (TIA), and cerebral infarction without residual deficits; Z79.82 Long term (current) use of aspirin; Z79.899 Other long term (current) drug therapy
CPT/HCPCS: 10045; 10047; 10078

== ENCOUNTER 2020-10-11 03:20 | Observation (INO) | payer OTHER ==
[~2020-10-11] VITALS: Ht 185.4 cm; Wt 106.6 kg
[2020-10-11] VITALS (12 sets, daily range): BP systolic 135–164; BP diastolic 59–94
[~2020-10-11 03:20] MED LIST changes: +ACETAMINOPHEN325 M1 PO; +BENAZEPRIL HCL20 MG PO; +CARVEDILOL25 MG PO; +CEFUROXIME500 MG PO; +HYDROCHLOROTHIA25 M1 PO
[2020-10-11] MEDS ORDERED: ZESTRIL40 MG PO (03:31)
[2020-10-11] MEDS ORDERED: FLOMAX0.4 MG PO (03:32)
[2020-10-11] MEDS ORDERED: OMEPRAZOLE40 MG PO (03:32)
[2020-10-11] MEDS ORDERED: FINASTERIDE5 MG PO (03:32)
[2020-10-11 03:49] LABS: BASOPHILS 0.9 % (0.0-2.0); EOSINOPHILS 1.3 % (0.0-3.0); MCH 26.6 pg (26.0-34.0)
[2020-10-11 03:50] LABS: ABSOLUTE NEUTROPHILS 5.7 thou/uL (1.4-8.2); HEMATOCRIT 37.3 % (42.0-52.0); HEMOGLOBIN 11.7 gm/dL (14.0-18.0); LYMPHOCYTES 19.1 % (24.0-44.0); MCHC 31.4 g/dL (28.0-37.0); MCV 84.6 fL (80.0-100.0); MONOCYTES 6.7 % (1.0-8.0); PLATELET COUNT 259 thou/uL (150-400); RBC 4.41 mil/uL (4.50-6.00); RDW 16.7 % (10.5-14.5); WBC 11.3 thou/uL (4.0-11.0)
[2020-10-11 03:55] LABS: ANION GAP 7 mmol/L (7-16); BUN 13 mg/dL (7-18); CHLORIDE 104 mmol/L (98-107); CO2 29 mmol/L (21-32); CREATININE 1.2 mg/dL (0.7-1.3); GLUCOSE 144 mg/dL (74-106); POTASSIUM 4.1 mmol/L (3.5-5.1); SODIUM 140 mmol/L (136-145)
[2020-10-11 04:05] LABS: ALBUMIN 3.2 g/dL (3.4-5.0); SGOT 20 U/L (15-37); SGPT 44 U/L (30-65); TOTAL BILIRUBIN 0.2 mg/dL (0.2-1.0); TOTAL PROTEIN 7.4 g/dL (6.4-8.2); TROPONIN-I <0.06 ng/mL (<0.06)
--- NOTE | 2020-10-11 07:07 | EKG ---
[place] [address] [facility] [place] [address] ELECTROCARDIOGRAM REPORT Name: SHAYE LICEA BALTAZAR Room #: 170-8 ADM IN M.R.#: [id number] Admission: 10/11/20 Attend Phys: Lita Lackey Discharge: Date of : 58 Report #: [id number] [facility] ED Test Date: 2020-10-11 Test Time: 03:22:40 Pat Name: SHAYE LICEA Department: Room: 170 Gender: M Hazardous Waste Technician: samira : 1960 Requested By: Areli Perez Order Number: [id number] MD: Tal Terrazas Measurements Intervals [place] Rate: 82 P: 39 TN: 165 QRS: -2 QRSD: 102 T: 7 QT: 374 QTc: 437 Interpretive Statements Sinus rhythm Inferoposterior infarct, old Compared to ECG 06/22/2020 01:34:36 Sinus tachycardia no longer present Myocardial infarct finding still present Electronically Signed On 10-11-2020 7:07:44 BRIM STRETCHING MACHINE OPERATOR by Tal Terrazas [email or web address] <ELECTRONICALLY SIGNED> By: Tal Terrazas MD, [facility] 10/11/20 0707 0322 0322 Tal Terrazas MD, FACC /EPI
--- NOTE | 2020-10-11 07:08 | EKG ---
[place] [address] [facility] [place] [address] ELECTROCARDIOGRAM REPORT Name: SHAYE LICEA BALTAZAR Room #: 170-8 ADM IN M.R.#: [id number] Admission: 10/11/20 Attend Phys: Lita Lackey Discharge: Date of : 58 Report #: [id number] [facility] ED Test Date: 2020-10-11 Test Time: 04:38:50 Pat Name: SHAYE LICEA Department: Room: 170 Gender: M Channel Opener Outsoles: aimee : 1960 Requested By: Areli Perez Order Number: [id number] MD: Tal Terrazas Measurements Intervals [place] Rate: 74 P: 29 IN: 175 QRS: -7 QRSD: 103 T: 1 QT: 357 QTc: 396 Interpretive Statements Sinus rhythm Inferoposterior infarct, old Compared to ECG 10/11/2020 03:22:40 No significant changes Electronically Signed On 10-11-2020 7:07:47 CLERICAL SECRETARY by Tal Terrazas [email or web address] <ELECTRONICALLY SIGNED> By: Tal Terrazas MD, [facility] 10/11/20 0707 0438 0438 Tal Terrazas MD, FACC /EPI
[2020-10-11 07:42] LABS: CHOLESTEROL 152 mg/dL (<200); HDL CHOLESTEROL 42 mg/dL (>40); LDL CHOLESTEROL 71 mg/dL (<100); TC:HDL 3.6 Ratio (Not establshd); TRIGLYCERIDE 197 mg/dL (<150); VLDL 39 mg/dL (<40)
--- NOTE | 2020-10-11 09:51 | 2DMMODE ---
[facility] [place] [address] 2 D/M-MODE ECHOCARDIOGRAM Name: SHAYE LICEA Room #: 170-8 ADM IN M.R.#: [id number] Admission: 10/11/20 Attend Phys: Ray Martinez MD Discharge: Date of : 58 Report #: [id number] THIS REPORT FOR: cc: FAM - No family physician/PCP FAM - No family physician/PCP Ishaan Anderson MD ~ APPROVED REPORT Study performed: 10/11/2020 08:20:51 EXAM: Comprehensive 2D, Doppler, and color-flow Echocardiogram Patient Location: ER Status: routine BSA: 2.30 HR: 75 bpm BP: 127/83 mmHg Rhythm: NSR Other Information Study Quality: Adequate Indications Chest Pain Hx: AL, cardiac stents, HTN, HLP. 2D Dimensions RVDd: 33.81 mm IVSd: 11.39 (7-11mm) LVOT Diam: 22.89 (18-24mm) LVDd: 55.49 mm PWd: 8.78 (7-11mm) Ascending Ao: 32.89 (22-36mm) LVDs: 50.03 (25-40mm) Left Atrium: 37.26 (27-40mm) Aortic Root: 40.98 mm Volumes Left Atrial Volume (Systole) Single Plane 4CH: 52.65 mL Single Plane 2CH: 72.02 mL LA ESV Index: 29.00 mL/m2 Aortic Valve AoV Peak Jonathan.: 1.32 m/s AO Peak Gr.: 6.95 mmHg LVOT Max P.07 mmHg LVOT Max V: 1.01 m/s [facility] [place] [address] 2 D/M-MODE ECHOCARDIOGRAM Name: ANUJASHAYE DEL VALLEFARTUN Room #: 170-8 ADM IN ..#: [id number] Admission: 10/11/20 Attend Phys: Ray Martinez, Discharge: Date of : 58 Report #: [id number] ROBERT Vmax: 3.15 cm2 Mitral Valve E/A Ratio: 0.9 MV Decel. Time: 145.78 ms MV E Max Jonathan.: 0.76 m/s MV A Jonathan.: 0.88 m/s MV PHT: 42.27 ms IVRT: 100.35 ms Pulmonary Valve PV Peak Jonathan.: 0.91 m/s PV Peak Gr.: 3.33 mmHg Pulmonary Vein P Vein S: 0.39 m/s P Vein D: 0.32 m/s P Vein S/D Ratio: 1.22 Tricuspid Valve RAP Estimate: 5.00 mmHg Left Ventricle The left ventricle is normal size. There is hypokinesis in the mid to basal inferior wall. Mild basal septal hypertrophy is present. Left ventricular systolic function is mildly decreased. LVEF is 45%. Mild diastolic dysfunction is present (impaired relaxation pattern). Right Ventricle The right ventricle is normal size. The right ventricular systolic function is normal. Atria The left atrium size is normal. The right atrium size is normal. Aortic Valve The aortic valve is normal in structure. No aortic regurgitation is present. There is no aortic valvular stenosis. Mitral Valve The mitral valve is normal in structure. Mild mitral regurgitation. No evidence of mitral valve stenosis. Tricuspid Valve The tricuspid valve is normal in structure. There is no tricuspid [facility] [place] [address] 2 D/M-MODE ECHOCARDIOGRAM Name: SHAYE LICEA Room #: 170-8 ADM IN M.R.#: [id number] Admission: 10/11/20 Attend Phys: Ray Martinez, Discharge: Date of : 58 Report #: [id number] valve regurgitation noted. Unable to assess PA pressure. Pulmonic Valve The pulmonary valve is normal in structure. There is no pulmonic valvular regurgitation. Great Vessels Aortic root is mildly dilated. The ascending aorta is normal in size. IVC is normal in size and collapses >50% with inspiration. Pericardium There is no pericardial effusion. <Conclusion> The left ventricle is normal size. Left ventricular systolic function is mildly decreased. LVEF is 45%. The right ventricle is normal size. The left atrium size is normal. The aortic valve is normal in structure. Mild mitral regurgitation. <ELECTRONICALLY SIGNED> By: Ishaan Anderson MD 10/11/2050 Ishaan Anderson MD /INF
--- NOTE | 2020-10-11 13:13 | CATHLAB ---
[facility] [address] [place] [address] INVASIVE PROCEDURE REPORT Name: SHAYE LICEA Room #: 160-1 ADM IN M.R.#: [id number] Admission: 10/11/20 Attend Phys: Lita Lackey Discharge: Date of : 58 Report #: [id number] THIS REPORT FOR: cc: FAM - No family physician/PCP FAM - No family physician/PCP Ishaan Anderson MD ~ APPROVED REPORT Study performed: 10/11/2020 09:28:52 Patient Details Patient Status: Out-Patient Room #: The patient is a 59 year-old male Event Personnel Ishaan Anderson Steward/Stewardess Bath, Teo Reich RTR ScrNicolette fang Ja'net RTR Monitor, Emerson Escamilla RN RN, River Monk RTR Inhalation Therapy Aides Teacher, River Monk RTLoan Monitor Procedures Performed Art Access - R femoral artery* Left Heart Cath w/or w/o Coronaries [id number] [facility] ALFA Place w/wo Plasty Single LAD 890593 68019 Initial Mod Sed Same Phys/QHP Gr5y 821419 58125 Mod Sed Same Phys/QHP Ea 153460 Hemostasis w/ Mynx Indication Dyspnea, Unstable angina , Chest pain Risk Factors Hypercholesterolemia, Coronary Artery DiseaseHypertension Previous Procedures/Diagnoses Previous PCI, Previous MT Procedure Narrative The Right Groin^ was infiltrated with 1% Lidocaine subcutaneous anesthesia. A PINNACLE 4FR Sheath #[id number] sheath was inserted into the RFA^. Coronary angiography was performed using coronary diagnostic catheters. The right coronary system was accessed and visualized with a JR4 catheter. The left coronary system was accessed and visualized with a JL4 catheter. The left ventricle was accessed and visualized with a PIGTAIL catheter. Pre-demployment femoral angiogram was performed . Closure device was deployed with a 6 Fr MYNXGRIP 6/7F #[id number]. The patient tolerated the procedure well and [facility] [place] [address] INVASIVE PROCEDURE REPORT Name: SHAYE LICEA Room #: 160-1 [facility] IN M.R.#: [id number] Admission: 10/11/20 Attend Phys: Lita Wheeler Discharge: Date of : 58 Report #: [id number] there were no complications associated with the procedure. A hematoma occurred. Intraoperative Conscious Sedation Sedation start time: 1005 Case end Time: 1110 Fentanyl 50 mcg Versed 1 mg Fluoro Time: 15.70 minutes Dose: DAP 48647.00 cGycm2 4312 mGy Contrast Type and Amount: Omnipaque 200 ml Coronary Angiography The patient's coronary anatomy is right dominant. Diagnostic Cath Left Main The left main artery is a large-caliber vessel, patent with no flow-limiting lesions. LAD The LAD is a moderate-sized caliber vessel, traversing the anterior wall and wrapping around the apex. There is a stent in the proximal/mid segment of the LAD with severe restenosis, 80%. Diagonal 1 This is a small to moderate-sized caliber vessel, with mild disease proximally. Diagonal 2 This is a small to moderate-sized caliber vessel, with a mild ectatic segment proximally. Circumflex The left circumflex artery is a small caliber vessel with severe diffuse disease in the proximal and mid segments. This is unchanged from prior cardiac catheterizations. OM1 This is a small to moderate-sized caliber vessel, patent with no flow-limiting lesions. Right Coronary The RCA is a dominant vessel with a borderline stenosis proximally, 60%. There is a stent in the distal segment, patent with no flow-limiting lesions. R PDA This is a small to moderate-sized caliber vessel, with a severe occlusion in the distal segment. This is unchanged from prior procedures. RPLV This is a moderate-sized caliber vessel, patent with no flow-limiting lesions. Left Ventriculography Left Ventriculography was not performed. Ejection Fraction was 45% based off patient's Echocardiogram. An LVEDP was measured and there is no gradient across the outflow tract. Hemodynamics The aortic pressure is 142/90 mmHg with a mean of 112 mmHg. The left [facility] [address] [place] [address] INVASIVE PROCEDURE REPORT Name: SHAYE LICEA Room #: 160-1 ADM IN M.R.#: [id number] Admission: 10/11/20 Attend Phys: Lita Wheeler Discharge: Date of : 58 Report #: [id number] ventricular pressure is 126/14 mmHg with a mean of mmHg. The left ventricular end diastolic pressure is 19 mmHg. PCI Technique Lesion Percutaneous coronary intervention was performed on the proximal left anterior descending artery segment. The lesion stenosis prior to intervention was 80% with YONG 3 flow. A Luge Wire .014 x 182CM #[id number] Guide Catheter was used to engage the ostium. A VISTA 6FR XB 3.5 #[id number] Interventional Guidewire was used to cross the lesion. BALLOON DILATION A Balloon catheter TREK NC RX 2.25 X 15 #[id number] was inserted and inflated up to 18.00atm for 27seconds. Additional Inflation: 20.00atm for 20seconds. Additional Inflation: 20.00atm for 20seconds. ANGIOSCULPT(scoring balloon) PTCA 2.5X10MM WAS PLACED AND INFLATIONS WERE 14 ATMS FOR 35 SECS AND 16 ATMS FOR 55 SECS within the stent restenosis. STENT DEPLOYMENT A drug-eluting stent RESOLUTE RISHI RX 2.75 X 22 #[id number] was inserted and inflated up to 12.00atm for 24seconds. POST STENT DEPLOYMENT BALLOON DILATION A Balloon catheter TREK NC RX 2.75 X 12 #[id number] was inserted and inflated up to 16.00atm for 27seconds. Additional Inflation: 18.00atm for 17seconds. Additional Inflation: 18.00atm for 13seconds. Final angiography reveals 10 % stenosis with YONG 3 flow. Conclusion 1. PCI involving atherectomy/stent of the proximal/mid LAD stent restenotic lesion, using ANGIOSCULPT(scoring balloon) and placement of a drug-eluting stent. 2. The left circumflex artery is a small caliber vessel with severe diffuse disease, unchanged from prior angiograms. Recommend medical therapy. 3. There is a patent stent in the distal RCA. There is a borderline stenosis in the proximal segment of the RCA, recommend stress testing. 4. There is mild segmental LV dysfunction. [facility] [address] [place] [address] INVASIVE PROCEDURE REPORT Name: SHAYE LICEA Room #: 160-1 ADM IN M.R.#: [id number] Admission: 10/11/20 Attend Phys: Lita Wheeler Discharge: Date of : 58 Report #: [id number] 5. Recommend dual antiplatelet therapy and aggressive risk factor management. <ELECTRONICALLY SIGNED> By: Ishaan Anderson MD 10/11/203 12 12 Ishaan Anderson MD /INF
[2020-10-11] MEDS ORDERED: CLOPIDOGREL75 MG PO (13:21)
--- NOTE | 2020-10-11 17:36 | NUR ---
12:00 -PT'S RIGHT GROIN HEMATOMA FREE, NO OOZING, PRESSURE DRESSING IS C,D,I. PT. C/O ON AND OFF HEADACHE-"GETS THEM ALL THE TIME". DENIES ANY CHEST PAIN, DENIES ANY SOB. NSR ON THE MONITOR IS ECTOPY FREE. IV FLUIDS RUNNING, LEFT AC IV SITE IS C,D,I.
[2020-10-12 00:20] VITALS: BP 124/77
[2020-10-12 02:06] LABS: GLYCOHEMOGLOBIN (HGB A1C) 6.9 % (4.8-5.6)
[2020-10-12 02:29] LABS: HEMATOCRIT 36.3 % (42.0-52.0); HEMOGLOBIN 11.5 gm/dL (14.0-18.0); MCH 26.8 pg (26.0-34.0); MCHC 31.9 g/dL (28.0-37.0); MCV 84.3 fL (80.0-100.0); RBC 4.3 mil/uL (4.50-6.00); RDW 16.7 % (10.5-14.5); WBC 6.5 thou/uL (4.0-11.0)
[2020-10-12 02:35] LABS: APTT 31.9 Seconds (24.5-32.8); PROTIME 10.9 Seconds (9.3-11.4)
[2020-10-12 02:45] LABS: CALCIUM 8.9 mg/dL (8.5-10.1); CREATININE 1.1 mg/dL (0.7-1.3); POTASSIUM 4.3 mmol/L (3.5-5.1)
[2020-10-12 02:56] LABS: POTASSIUM 4.2 mmol/L (3.5-5.1); TROPONIN-I <0.06 ng/mL (<0.06)
[2020-10-12 04:15] VITALS: BP 154/100
[2020-10-12 04:45] VITALS: BP 154/100
--- NOTE | 2020-10-12 05:45 | NUR ---
PT SLEPT THROUGH MOST THE NIGHT. A&OX4. SR ON THE MONITOR. ON RA. NO COMPLAINTS OF PAIN OR SOA. R GROIN SITE CDI, NO HEMATOMA. PT STRAIGHT CATHS SELF; RECENT TURP. PT UP AD KENNETH; STEADY GAIT. ASSESSMENTS CHARTED. MEDS GIVEN PER EMAR. CONTINUING TO ASSESS ACCORDING TO POC.
[2020-10-12 07:45] VITALS: BP 155/82
[2020-10-12 08:00] VITALS: BP 155/82
--- NOTE | 2020-10-12 10:56 | EKG ---
[place] [address] [facility] [address] ELECTROCARDIOGRAM REPORT Name: SHAEY LICEA Room #: 217-P ADM IN M.R.#: [id number] Admission: 10/11/20 Attend Phys: Lita Lackey Discharge: Date of : 58 Report #: [id number] [facility] Test Date: 2020-10-12 Test Time: 10:04:09 Pat Name: SHAYE LICEA Department: Room: 217 P Gender: M Clinical Documentation Manager: : 1960 Requested By: Mary Ellen Loyd Order Number: [id number] MD: Ernesto Sarkar Measurements Intervals [place] Rate: 88 P: 35 UT: 161 QRS: -15 QRSD: 103 T: 17 QT: 351 QTc: 425 Interpretive Statements Sinus rhythm Abnormal R-wave progression, early transition Left ventricular hypertrophy Inferior infarct, old Compared to ECG 10/11/2020 04:38:50 Left ventricular hypertrophy now present Myocardial infarct finding still present Electronically Signed On 10-12-2020 10:56:41 [employer] by Ernesto Sarkar [email or web address] <ELECTRONICALLY SIGNED> By: Ernesto Sarkar MD 10/12/20 1056 1004 100 Ernesto Sarkar MD /ISAI
[2020-10-12 11:54] VITALS: BP 154/100
--- NOTE | 2020-10-12 12:28 | NUR ---
PT CARE ASSUMED AT 0700. ASSESSMENTS CHARTED. MEDICATIONS CHARTED. CLEMENTINA IV. SINUS RHYTHM. UP AD KENNETH. DAY 2 - RT GROIN, MYNX; C/D/I. RECENT TURP; SELF CATHS. PT TO DISCHARGE TO HOME. DISCHARGE PAPERWORK SIGNED. TELEMETRY D/C'D. IV D/C'D.
== END 2020-10-12 12:35 | disposition home or self-care (01) ==
LOC: ER 03:20 → EROBS 06:08 → ER 10:03 → TBACV 10:54 → 2N 10:54
PROVIDERS: Emergency Medicine; Nurse Practitioner Adult Health; Nurse Practitioner Family; ADMIT Hospitalist; ATTEND Hospitalist
DX: I25.110 Atherosclerotic heart disease of native coronary artery with unstable angina pectoris (principal); I11.0 Hypertensive heart disease with heart failure; I50.9 Heart failure, unspecified; E78.5 Hyperlipidemia, unspecified; J44.9 Chronic obstructive pulmonary disease, unspecified; F41.9 Anxiety disorder, unspecified; M19.90 Unspecified osteoarthritis, unspecified site; K21.9 Gastro-esophageal reflux disease without esophagitis; Z87.891 Personal history of nicotine dependence; Z79.899 Other long term (current) drug therapy
CPT/HCPCS: 10081